=== PATIENT | male | born 1995 | race Caucasian/White ===

== ENCOUNTER 2019-11-11 17:49 | Emergency (ER) | payer OTHER ==
[~2019-11-11] VITALS: Ht 200.7 cm; Wt 81.7 kg
[~2019-11-11 17:49] MED LIST: IBUP800 PO
[2019-11-11] MEDS ORDERED: Norco 5-325 Ta1 EACH PO (20:46)
[2019-11-11] MEDS ORDERED: IBUP800 PO (20:46)
== END 2019-11-11 21:04 | disposition home or self-care (01) ==
LOC: ER 17:49
DX: M75.101 Unspecified rotator cuff tear or rupture of right shoulder, not specified as traumatic (principal); Z91.048 Other nonmedicinal substance allergy status; F41.9 Anxiety disorder, unspecified; F17.210 Nicotine dependence, cigarettes, uncomplicated
CPT/HCPCS: 73030; 96372; 99283-25; J3301

== ENCOUNTER 2021-01-01 14:46 | Emergency (ER) | payer OTHER ==
[~2021-01-01] VITALS: Ht 205.7 cm; Wt 79.4 kg
[~2021-01-01 14:46] MED LIST changes: +Norco 5-325 Ta1 EACH PO
[2021-01-01] MEDS ORDERED: ONDA4ODT MM (15:55)
[2021-01-01] MEDS ORDERED: Norco 5-325 Ta1 EACH PO (15:55)
== END 2021-01-01 17:03 | disposition home or self-care (01) ==
LOC: ER 14:46
DX: S52.571A Other intraarticular fracture of lower end of right radius, initial encounter for closed fracture (principal); Z91.048 Other nonmedicinal substance allergy status; V00.131A Fall from skateboard, initial encounter
CPT/HCPCS: 29125; 73080; 73090; 73110; 96372-59; 99283-25; A9270; J1885